=== PATIENT | female | born 1950 | race Caucasian/White ===

== ENCOUNTER 2020-02-28 09:00 | Emergency (ER) | payer MEDICARE ==
[~2020-02-28] VITALS: Ht 162.6 cm; Wt 75.0 kg
[2020-02-28 09:04] VITALS: BP 122/82
--- NOTE | 2020-02-28 10:15 | NUR ---
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
== END 2020-02-28 10:16 ==
LOC: ED 10:10
DX: R05 Cough (principal)
CPT/HCPCS: 99281

== ENCOUNTER → 2020-02-28 | Outpatient (CLI) | payer MEDICARE | END | disposition home or self-care (01) | LOC: CFH 10:44 | PROVIDERS: ATTEND Nurse Practitioner Family | DX: R05 Cough (principal); J18.8 Other pneumonia, unspecified organism | CPT/HCPCS: 71046 ==